=== PATIENT | male | born 1945 | race Caucasian/White ===

== ENCOUNTER 2021-01-23 09:27 | Outpatient (CLI) | payer MEDICARE | END 2021-01-23 09:28 | disposition home or self-care (01) | LOC: CSHCT 09:27 | PROVIDERS: ATTEND Internal Medicine Cardiovascular Disease | DX: I70.212 Atherosclerosis of native arteries of extremities with intermittent claudication, left leg (principal); I70.203 Unspecified atherosclerosis of native arteries of extremities, bilateral legs; I74.5 Embolism and thrombosis of iliac artery; K57.90 Diverticulosis of intestine, part unspecified, without perforation or abscess without bleeding | CPT/HCPCS: 75635; 82565 ==